=== PATIENT | female | born 1990 | race Caucasian/White ===

== ENCOUNTER 2024-07-24 15:00 | Outpatient (AMB) | payer BC, SELFPAY ==
--- NOTE | 2024-07-24 15:10 | MHC.PC.OV ---
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 Intake Note: establish care Is last menstrual period known: Yes Last menstrual period: 07/20/24 Post menopausal: No Patient : No Allergies sulfa drugs Allergy (Mild, Uncoded 07/24/24 15:12) Anaphylaxis Medication List - Last Reconciled 07/24/24 by Dixon Reaves MD No Known Home Meds Tobacco use date assessed: 07/24/24 Dental Screening Dental Screen Date: 07/24/24 Did you have a dental visit in the last 12 months?: No Did you have a dental problem in the last 6 months where you did not have access to dental care?: No Was dental information given to patient?: Patient has dentist HPI 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 ?? Prior PCP:?No PCP x years. Was seen at [facility] 3 yrs ago Acute issue(s):? GI issues Dx'd w/ Gastroparesis Dr Darleen Baugh Had tried Zofran & Omeprazole. Nausea and epigastric pain ?? PMHx:?Gastroparesis, Bipolar I disorder & Borderline Takes Sertraline 200mg daily SurgHx:?None FHx:?Mom: Cancer (?Breast CA) age 42. Substance Abuse. Dad: Substance Abuse, Bipolar I SocHx:? mNonsmoker. EtOH: 2 weekends a month up to 4 drinks. No drugs HPI Comments History of Present Illness Details Documentation assistance for Dixon Reaves MD, was provided by Ludwig Davis,? Soda Worker on 07/24/2024 at 3:30 PM EST. I, Dr. Reaves, have read, observed, and verified documentation. [facility] Medical History (Updated 07/24/24 @ 15:47 by Ludwig Davis) Depression Anxiety Gastroparesis Family History (Updated 07/24/24 @ 15:35 by Mary Barbosa) Mother Cancer Alcoholism Father Alcoholism Maternal Grandmother Breast cancer Paternal Grandmother Breast cancer Social History (Updated 07/24/24 @ 15:22 by Mary Barbosa) Housing: House Patient Tobacco Use Status: Never used Tobacco e-Cigarette/Vaping Use: Never Used Second Hand Smoke Exposure: No Use of substances other than those prescribed or required for medical reasons: Yes Substance Use Type: Marijuana Patient : No service: No Current occupational status: employed 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 1. Little interest or pleasure in doing things: not at all 2. Feeling down, depressed, or hopeless: several days 3. Trouble falling or staying asleep, or sleeping too much: more than half the days 4. Feeling tired or having little energy: several days 5. Poor appetite or overeating: nearly every day 6. Feeling bad about yourself - or that you are a failure or have let yourself or your family down: several days 7. Trouble concentrating on things, such as reading the newspaper or watching television: several days 8. Moving or speaking so slowly that other people could have noticed. Or the opposite - being so fidgety or restless that you have been moving around a lot more than usual: not at all 9. Thoughts that you would be better off or of hurting yourself in some way: not at all Total score: 9 Depression Screening Interpretation: Positive Depression Screening Done: Yes 74623 - PHQ-9 Billing: Yes Source: Developed by Drs. Herminio Gongora, Renee Carrillo, Omar Villarreal and colleagues, with an educational fiorella from [employer]. Thrive Questionnaire Date Thrive assessed: 07/24/24 I am a: Patient What is your living situation today?: I have a steady place to live Within the past 12 months, did the food you bought not last and you didn't have the money to get more?: Never true Within the past 12 months, did you worry whether your food would run out before you got money to buy more?: Never true Do you have trouble paying for medicines?: No Do you have trouble getting transportation to medical appointments?: No Do you have trouble paying your heating and electricity bill?: No Do you have trouble taking care of your child, family member or friend?: No Do you have trouble with day-to-day activities such as bathing, preparing meals, shopping, managing finances, etc.?: No Are you currently unemployed and looking for a job?: No Are you interested in more education?: No Please select the resources that you would like help with: None Currently or been in a relationship where the following occur: No concerns reported THRIVE Score: 0 AUDIT C Alcohol Use Questionnaire (AUDIT-C) 1. How often do you have a drink containing alcohol?: 2-4 times a month 2. How many drinks containing alcohol do you have on a typical day when you are drinking?: 3 or 4 3. How often do you have six or more drinks on one occasion?: Never Total Score: 3 Score Reviewed/Action Taken: Yes ARTURO-7 AMB Questionnaire ARTURO-7 Date ARTURO - 7 assessed: 07/24/24 Feeling nervous, anxious, or on edge: 1 = Several days Not being able to stop or control worryin = Several days Worrying too much about different things: 1 = Several days Trouble relaxin = Several days Being so restless that it is hard to sit still: 1 = Several days Becoming easily annoyed or irritable: 1 = Several days Feeling afraid as if something awful might happen: 0 = Not at all Total ARTURO-7 score (0-4 normal; 5-9 mild; 10-14 moderate; 15-21 severe): 6 Source: Developed by Drs. Herminio Gongora, Renee Carrillo, Omar Villarreal and colleagues, with an educational fiorella from [employer]. ARTURO-7 Assessment Billing ARTURO-7 Assessment Tool: ARTURO-7 Assessment 46017 Review of Systems Const Denies chills, Denies fatigue, Denies fever(s), Denies headache(s) and Denies weakness ENT Denies dizziness and Denies headache(s) Card Denies chest pain, Denies lightheadedness, Denies dyspnea and Denies other (Palpitations) Resp Denies cough, Denies dyspnea, Denies wheezing and Denies other ( shortness of breath) GI Details: Epigastric pain Reports nausea Musc Denies numbness and Denies tingling Neuro Denies dizziness, Denies headache(s), Denies numbness, Denies tingling, Denies paresthesias and Denies weakness Psych Reports anxiety and Reports depression Endo Denies fatigue Aller/Immun Denies wheezing Physical exam (Primary Care) Vital Signs: Last Vital Signs Temp 97.3 F 07/24/24 15:13 Pulse 72 07/24/24 15:13 Resp 16 07/24/24 15:13 BP 123/72 07/24/24 15:21 Pulse Ox 98 07/24/24 15:13 Oxygen Delivery Method Room Air 07/24/24 15:13 BMI result Body Mass Index 30.0 Tobacco/Smoking Status: Tobacco use Status Tobacco use date assessed 07/24/24 07/24/24 15:24 Patient Tobacco Use Status Never used Tobacco 07/24/24 15:24 e-Cigarette/Vaping Use Never Used 07/24/24 15:24 PHQ-9: PHQ-9 Score PHQ-9: Total score 9 07/24/24 15:19 Depression Screening Interpretation: Positive Thrive Assessment: Date of Thrive Assessment Date Thrive assessed 07/24/24 07/24/24 15:19 Currently or been in a relationship where the following occur: No concerns reported Const General: no acute distress and well developed Nutritional Appearance: well nourished Orientation/consciousness: patient oriented x3 [facility] Head: Yes normocephalic and Yes atraumatic Eyes General: appearance normal, both eyes and all related structures Pupils: Equal, round and reactive pupils present EOM: EOMs intact bilaterally Resp Effort & Inspection: normal respiratory effort Auscultation: clear to auscultation bilaterally Cardio Rate: regular rate Rhythm: regular rhythm Heart sounds: S1 normal heart sound present, S2 normal heart sound present, no gallops, no murmurs and no rubs Neuro General: patient oriented x3 and gait normal Cranial nerves: Yes Equal, round and reactive pupils present Psych Affect: normal affect Assessment and Plan Assessment & Plan (1) Depression with anxiety: Code(s): F41.8 - Other specified anxiety disorders Plan: History?of?bipolar?2?disorder?and?also?borderline?personality?disorder She?is?on?an?SSRI?still?prescribed?by?her?prior?provider?at?[facility]. She?has?been?working?on?getting?a?therapist?and?new?psych?med?provider. Will?benefit?from?referral?to?[facility]?outpatient?psychiatric?consult?for?interim?management. (2) Bipolar 2 disorder: Code(s): F31.81 - Bipolar II disorder Plan: As?above (3) Borderline personality disorder: Code(s): F60.3 - Borderline personality disorder Plan: As?above (4) Gastroparesis: Code(s): K31.84 - Gastroparesis Plan: History?of?gastroparesis,?diagnosed?by?Dr. Campbell She?has?tried?PPI?and?also?Zofran?without?significant?improvement. Referred?to?Gastroenterology (5) Laboratory exam ordered as part of routine general medical examination: Code(s): Z00.00 - Encounter for general adult medical examination without abnormal findings Plan: Check?lab Orders: Orders Lipid Panel Today Z00.00 - Encounter for general adult medical examination without abnormal findings Microalbumin, Random (w Creat) Today I10 - Essential (primary) hypertension UA and rflx microscopic Today Z00.00 - Encounter for general adult medical examination without abnormal findings CT NG by PCR Today Z11.3 - Encounter for screening for infections with a predominantly sexual mode of transmission Syphilis Screen Today Z11.3 - Encounter for screening for infections with a predominantly sexual mode of transmission Complete Blood Count Auto Diff Today F31.81 - Bipolar II disorder, Z00.00 - Encounter for general adult medical examination without abnormal findings Comprehensive [place]. Panel Fast Today Z00.00 - Encounter for general adult medical examination without abnormal findings TSH reflex Free T4 Today Z00.00 - Encounter for general adult medical examination without abnormal findings Hepatitis B,C Profile Today Z11.3 - Encounter for screening for infections with a predominantly sexual mode of transmission HIV Ab/Ag Today Z11.3 - Encounter for screening for infections with a predominantly sexual mode of transmission Referrals Psychiatry Outpatient Consultation Service F31.81 - Bipolar II disorder, F41.8 - Other specified anxiety disorders, F60.3 - Borderline personality disorder Medications: New sertraline 200 mg PO DAILY 90 days 90 caps 0RF Coding Level of Care Code New Pt Level 3 (19046) Diagnoses Depression with anxiety F41.8 Bipolar 2 disorder F31.81 Borderline personality disorder F60.3 Gastroparesis K31.84 Laboratory exam ordered as part of routine general medical examination Z00.00 Additional Codes ARTURO-7 Assessment Billing - ARTURO-7 Assessment Tool: ARTURO-7 Assessment 46135 ([id number])
[2024-07-24 15:13] VITALS: BP 131/73; PULSE 72; RESP 16; TEMP 36.3; O2SAT 98
[2024-07-24 15:21] VITALS: BP 123/72
== END 2024-07-24 16:47 | disposition home or self-care (01) ==
PROVIDERS: PCP Family Medicine; Visit Provider Family Medicine
DX: F41.8 Other specified anxiety disorders (principal); F31.81 Bipolar II disorder; F60.3 Borderline personality disorder; K31.84 Gastroparesis; Z00.00 Encounter for general adult medical examination without abnormal findings
CPT/HCPCS: 96127; 99203

== ENCOUNTER 2024-11-21 10:40 | Outpatient (REF) | payer BC, SELFPAY ==
[2024-11-21 14:15] LABS: MANUAL DIFF FLAG NO
[2024-11-21 14:15] LABS: Appearance Urine Cloudy; Color Urine Yellow; Glucose Urine UA Negative (Negative); Leukocyte Esterase Urine Moderate (2+) (Negative); Nitrite Urine Negative (Negative); PH 6.5 (5.0-9.0); Specific Gravity - Urine 1.015 (1.005-1.025); UMIC TRIGGER UA YES; Urine Blood Negative (Negative); Urine Ketones Negative (Negative); Urine Protein Negative (Neg-Trace)
[2024-11-21 14:20] LABS: Basophils Percent Auto 0.5 % (0-2); Eosinophils Absolute Auto 0.1 X10*3/uL (0.0-0.4); Eosinophils Percent Auto 1.2 % (0-4); Hematocrit 40.8 % (37.0-47.0); Hemoglobin 13.8 g/dl (12.0-16.0); Imm Gran Abs Auto 0.03 X10*3/uL (0.00-0.03); Imm Gran Pct Auto 0.5 % (0.0-0.4); Lymphocytes Absolute Auto 1.5 X10*3/uL (1.2-4.9); Lymphocytes Percent Auto 25.3 % (20-40); Mean Corpuscular HGB Conc 33.8 g/dl (31.0-35.0); Mean Corpuscular Hemoglobin 30.2 pg (27.0-33.0); Mean Corpuscular Volume 89.3 fL (80.0-98.0); Mean Platelet Volume 11.2 fL (9.4-12.3); Monocytes Absolute Auto 0.4 X10*3/uL (0.1-1.2); Monocytes Percent Auto 6.5 % (2-11); Neutrophils Absolute Auto 3.9 x10*3/uL (2.0-8.3); Platelet Count 293 X10*3/uL (160-400); Red Blood Count 4.57 X10*6/uL (4.20-5.50); Red Cell Distribution Width 12.6 % (11.0-16.0); White Blood Count 5.9 X10*3/uL (4.8-10.8)
[2024-11-21 14:32] LABS: Bacteria Urine 4+ (None Seen); Hyaline Casts Urine 0-2 /LPF (0-2); RBC Urine 0-2 /HPF (0-2); Squamous Epithelial Cell Urine >20 /HPF (0-2)
[2024-11-21 14:44] LABS: Alanine Aminotransferase 30 U/L (0-31); Albumin Level 4.3 g/dL (3.5-5.0); Alkaline Phosphatase 62 U/L (39-117); Anion Gap 13 (12-20); Aspartate Amino Transferase 28 U/L (5-31); Bilirubin Total 0.5 mg/dL (0.0-1.0); Blood Urea Nitrogen 8 mg/dL (9-16); Calcium 9.2 mg/dL (8.4-10.2); Carbon Dioxide 24 mmol/L (22-29); Chloride 107 mmol/L (96-108); Cholesterol 256 mg/dL (<200); Estimated Glomerular Filt Rate > 60; Glucose Fasting 97 mg/dL (60-99); HDL Cholesterol 57 mg/dL (>40); LDL Cholesterol Calculated 167 mg/dL (<100); Potassium 3.9 mmol/L (3.3-5.1); Sodium 140 mmol/L (135-145); Total Protein 7.4 g/dL (6.5-8.0); Triglycerides 161 mg/dL (<150)
[2024-11-21 14:49] LABS: Creatinine Urine 200.03 mg/dL; Microalbum/Creatinine Ratio Ur 4.4 ug/mg cr (<30)
[2024-11-21 14:51] LABS: Syphilis Screen Nonreactive (Nonreactive)
[2024-11-21 14:54] LABS: HBS Num1 481.49 mIU/mL (0-7.99); HBc Num1 0.15 S/CO (0.00-0.79); HBsAGNum1 0.35 S/CO (0.00-0.99); HIV AB/AG Nonreactive (Nonreactive); HIV Num 1 0.06 S/CO (0.00-0.99); Hepatitis B Core Antibody Nonreactive (Nonreactive); Hepatitis B Surface Antigen Negative (Negative); ~HepC Num1 0.09 S/CO (0.00-0.79); ~Hepatitis B Surface Antibody REACTIVE (Nonreactive); ~Hepatitis C Antibody Nonreactive (Nonreactive)
[2024-11-21 15:02] LABS: TSH reflex Free T4 1.29 uIU/mL (0.32-4.0)
== END 2024-11-21 10:41 | disposition home or self-care (01) ==
LOC: HO.WFDLDS 10:40
PROVIDERS: Visit Provider Family Medicine
DX: Z00.00 Encounter for general adult medical examination without abnormal findings (principal); I10 Essential (primary) hypertension; Z11.3 Encounter for screening for infections with a predominantly sexual mode of transmission; F31.81 Bipolar II disorder
CPT/HCPCS: 36415; 80053; 80061; 81001; 82043; 82570; 84443; 85025; 86704; 86706; 86780; 86803; 87340; 87389

== ENCOUNTER 2025-02-19 11:30 | Outpatient (AMB) | payer BC, SELFPAY ==
--- NOTE | 2025-02-19 11:36 | A.OFFPC_ITS ---
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 Labs drawn 11/21/24. Reviewed labs with pt. Triglycerides 161. TC 256. LDL 167. HDL 57. 4+ urine bacteria seen. 11-20 Urine WBC. Denies urinary symptoms. 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 1. Little interest or pleasure in doing things: several days 2. Feeling down, depressed, or hopeless: several days 3. Trouble falling or staying asleep, or sleeping too much: nearly every day 4. Feeling tired or having little energy: several days 5. Poor appetite or overeating: not at all 6. Feeling bad about yourself - or that you are a failure or have let yourself or your family down: not at all 7. Trouble concentrating on things, such as reading the newspaper or watching television: nearly every day 8. Moving or speaking so slowly that other people could have noticed. Or the opposite - being so fidgety or restless that you have been moving around a lot more than usual: several days 9. Thoughts that you would be better off or of hurting yourself in some way: not at all Total score: 10 Depression Screening Interpretation: Positive Depression Screening Done: Yes 36917 - PHQ-9 Billing: Yes Source: Developed by Drs. Herminio Gongora, Renee Carrillo, Omar Villarreal and colleagues, with an educational fiorella from [employer]. Thrive Questionnaire Date Thrive assessed: 02/19/25 I am a: Patient What is your living situation today?: I have a steady place to live Within the past 12 months, did the food you bought not last and you didn't have the money to get more?: Never true Within the past 12 months, did you worry whether your food would run out before you got money to buy more?: Never true Do you have trouble paying for medicines?: No Do you have trouble getting transportation to medical appointments?: No Do you have trouble paying your heating and electricity bill?: No Do you have trouble taking care of your child, family member or friend?: No Do you have trouble with day-to-day activities such as bathing, preparing meals, shopping, managing finances, etc.?: No Are you currently unemployed and looking for a job?: No Are you interested in more education?: No Please select the resources that you would like help with: None Currently or been in a relationship where the following occur: No concerns reported THRIVE Score: 0 AUDIT C Alcohol Use Questionnaire (AUDIT-C) 1. How often do you have a drink containing alcohol?: 2-4 times a month 2. How many drinks containing alcohol do you have on a typical day when you are drinking?: 1 or 2 3. How often do you have six or more drinks on one occasion?: Never Total Score: 2 Score Reviewed/Action Taken: Yes ARTURO-7 AMB Questionnaire ARTURO-7 Date ARTURO - 7 assessed: 02/19/25 Feeling nervous, anxious, or on edge: 1 = Several days Not being able to stop or control worryin = More than half the days Worrying too much about different things: 2 = More than half the days Trouble relaxin = More than half the days Being so restless that it is hard to sit still: 3 = Nearly every day Becoming easily annoyed or irritable: 1 = Several days Feeling afraid as if something awful might happen: 0 = Not at all Total ARTURO-7 score (0-4 normal; 5-9 mild; 10-14 moderate; 15-21 severe): 11 Source: Developed by Drs. Herminio Gongora, Renee Carrillo, Omar Villarreal and colleagues, with an educational fiorella from [employer]. ARTURO-7 Assessment Billing ARTURO-7 Assessment Tool: ARTURO-7 Assessment 16172 Review of Systems Const Denies chills, Denies fatigue, Denies fever(s), Denies headache(s) and Denies weakness ENT Denies dizziness and Denies headache(s) Card Denies dyspnea Resp Denies cough, Denies dyspnea, Denies wheezing and Denies other (shortness of breath) Musc Denies numbness and Denies tingling Neuro Denies dizziness, Denies headache(s), Denies numbness, Denies tingling and Denies weakness Psych Denies anxiety and Denies depression Endo Denies fatigue Aller/Immun Denies wheezing Physical exam (Primary Care) Vital Signs: Last Vital Signs Temp 98.3 F 02/19/25 11:38 Pulse 77 02/19/25 11:38 Resp 14 02/19/25 11:38 BP 116/70 02/19/25 11:38 Pulse Ox 98 02/19/25 11:38 Oxygen Delivery Method Room Air 02/19/25 11:38 BMI result Body Mass Index 29.8 Tobacco/Smoking Status: Tobacco use Status Tobacco use date assessed 07/24/24 02/19/25 11:41 Patient Tobacco Use Status Never used Tobacco 02/19/25 11:41 e-Cigarette/Vaping Use Never Used 02/19/25 11:41 PHQ-9: PHQ-9 Score PHQ-9: Total score 10 02/19/25 11:45 Depression Screening Interpretation: Positive Thrive Assessment: Date of Thrive Assessment Date Thrive assessed 02/19/25 02/19/25 11:41 Currently or been in a relationship where the following occur: No concerns reported Const General: well developed; No acute distress Nutritional Appearance: well nourished Orientation/consciousness: patient oriented x3 [facility] Head: Yes normocephalic and Yes atraumatic Eyes General: appearance normal, both eyes and all related structures Pupils: Equal, round and reactive pupils present EOM: EOMs intact bilaterally Resp Effort & Inspection: normal respiratory effort Neuro General: patient oriented x3 and gait normal Cranial nerves: Yes Equal, round and reactive pupils present Psych Affect: normal affect Coding Level of Care Code Est Pt Level 4 (59479) Diagnoses Hyperlipidemia E78.5 Bacteria in urine R82.71 Difficulty concentrating R41.840 Screening for STD (sexually transmitted disease) Z11.3 Additional Codes ARTURO-7 Assessment Billing - ARTURO-7 Assessment Tool: ARTURO-7 Assessment 70146 ([id number]) PHQ-9 - 02097 - PHQ-9 Billing: Yes ([id number]) Assessment & Plan Assessment & Plan (1) Hyperlipidemia: Code(s): E78.5 - Hyperlipidemia, unspecified Category: Medical Plan: LDL?cholesterol?and?TC?are?too?high Encouraged?a?diet?lower?in?saturated?fats?and?cholesterol Will?recheck?in?about?3?months. We?did?discuss?briefly?that?we?may?need?to?consider?medication (2) Bacteria in urine: Code(s): R82.71 - Bacteriuria Category: Medical Plan: No?symptoms Hydrate?well Void?regularly (3) Difficulty concentrating: Code(s): R41.840 - Attention and concentration deficit Category: Medical Plan: Patient?says?her?therapist?has?diagnosed?her?with?ADHD She?will?have?therapist?note?forwarded?to?me?establishing?diagnosis.??We?discuss ?medications/treatments?after?that (4) Screening for STD (sexually transmitted disease): Code(s): Z11.3 - Encounter for screening for infections with a predominantly sexual mode of transmission Category: Medical Plan: Negative Orders: Orders Lipid Panel Today E78.5 - Hyperlipidemia, unspecified, Z00.00 - Encounter for general adult medical examination without abnormal findings Comprehensive Rule. Panel Fast Today E78.5 - Hyperlipidemia, unspecified, Z00.00 - Encounter for general adult medical examination without abnormal findings
[2025-02-19 11:38] VITALS: BP 116/70; PULSE 77; RESP 14; TEMP 36.8; O2SAT 98; BMI 29.8
== END 2025-02-19 11:53 | disposition home or self-care (01) ==
LOC: HO.HMCFM 11:31
PROVIDERS: PCP Family Medicine; Visit Provider Family Medicine
DX: E78.5 Hyperlipidemia, unspecified (principal); R82.71 Bacteriuria; R41.840 Attention and concentration deficit; Z11.3 Encounter for screening for infections with a predominantly sexual mode of transmission

== ENCOUNTER → 2025-02-19 11:30 | Outpatient (BNVA) | payer BC, SELFPAY | PROVIDERS: PCP Family Medicine; Visit Provider Family Medicine | DX: E78.5 Hyperlipidemia, unspecified (principal); R82.71 Bacteriuria; R41.840 Attention and concentration deficit | CPT/HCPCS: 96127 ==

== ENCOUNTER 2025-05-06 11:07 | Outpatient (AMB) | payer BC, SELFPAY ==
--- NOTE | 2025-05-06 11:17 | A.OFFPC_ITS ---
Vital Signs 05/06/25 11:19 Height 5 ft 2 in Weight 159 lb 4 oz BMI 29.1 BP 110/84 Blood Pressure Location Rt brachial Position Sitting Respiration 14 Pulse 82 Pulse Source Pulse Oximeter Pulse Oximetry (%) 99 Oxygen Delivery Method Room Air Oxygen Flow Rate 97.9 Intake Visit Reasons: Chest pain Intake Note: Was sick two weeks ago. For the past 3 days has been having cough, chest pain, sob. 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 She states that about 2 weeks ago she was really sick with flu-like symptoms including congestion, fever, chills, body aches. She says that she was down in out in bed for about a week. She does have asthma and it does tend to flare-up with illnesses. She says that she has noticed this intermittent wheezing and shortness on breath. She felt fine for a few days and then for the last few days has had a cough that is almost constant and productive. She is also wheezing and short of breath with it. She says it feels like a tightness in her chest. She bought an [id number] inhaler and that seem to make a difference. She also tried DayQuil today which has not helped the cough signif icantly. No nausea, vomiting or dizziness. [facility] Medical History (Updated 05/06/25 @ 15:08 by Hanny Wilkerson PA-C) Depression Anxiety Gastroparesis Family History Mother Cancer Alcoholism Father Alcoholism Maternal Grandmother Breast cancer Paternal Grandmother Breast cancer Social History (Updated 05/06/25 @ 11:28 by Cayla Wilson CMA) Housing: House Alcohol intake: current Patient Tobacco Use Status: Never used Tobacco e-Cigarette/Vaping Use: Never Used Second Hand Smoke Exposure: No Use of substances other than those prescribed or required for medical reasons: Yes Substance Use Type: Marijuana service: No Current occupational status: employed 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 Current occupational exposures/hazards: Yes Cognitive needs: No Hearing needs: No Vision needs: Yes Questionnaire Thrive Questionnaire Date Thrive assessed: 02/12/25 I am a: Patient What is your living situation today?: I have a steady place to live Within the past 12 months, did the food you bought not last and you didn't have the money to get more?: Never true Within the past 12 months, did you worry whether your food would run out before you got money to buy more?: Never true Do you have trouble paying for medicines?: No Do you have trouble getting transportation to medical appointments?: No Do you have trouble paying your heating and electricity bill?: No Do you have trouble taking care of your child, family member or friend?: No Do you have trouble with day-to-day activities such as bathing, preparing meals, shopping, managing finances, etc.?: No Are you currently unemployed and looking for a job?: No Are you interested in more education?: No Please select the resources that you would like help with: None Currently or been in a relationship where the following occur: No concerns reported THRIVE Score: 0 ARTURO-7 AMB Questionnaire ARTURO-7 Date ARTURO - 7 assessed: 02/19/25 Source: Developed by Drs. Herminio Gongora, Renee Carrillo, Omar Villarreal and colleagues, with an educational fiorella from [employer]. Physical exam (Primary Care) Vital Signs: Last Vital Signs Pulse 82 05/06/25 11:19 Resp 14 05/06/25 11:19 BP 110/84 05/06/25 11:19 Pulse Ox 99 05/06/25 11:19 Oxygen Delivery Method Room Air 05/06/25 11:19 Oxygen Flow Rate 97.9 05/06/25 11:19 BMI result Body Mass Index 29.1 Tobacco/Smoking Status: Tobacco use Status Tobacco use date assessed 07/24/24 05/06/25 11:23 Patient Tobacco Use Status Never used Tobacco 05/06/25 11:28 e-Cigarette/Vaping Use Never Used 05/06/25 11:28 Thrive Assessment: Date of Thrive Assessment Date Thrive assessed 02/12/25 05/06/25 11:23 Currently or been in a relationship where the following occur: No concerns reported Const Orientation/consciousness: patient oriented x3 HENMT Ears: hearing grossly normal bilaterally and TM's normal bilaterally General nose exam: Normal nares present and No nasal discharge present Face and sinus: Yes sinuses nontender Mouth: Normal oral and palatal mucosa present Neck Thyroid: Thyroid normal Lymphatic: no lymphadenopathy noted Resp Other: Able to speak in full sentences however, coughing throughout. Scattered wheezing noted throughout the posterior lung wilson. Crackles noted at the left lower lung. Cardio Rate: regular rate Rhythm: regular rhythm Heart sounds: S1 normal heart sound present and S2 normal heart sound present GI Inspection: Yes normal to inspection Palpation (GI): Soft to palpation and Other GI palpation findings present (nontender, no cva tenderness) Auscultation: normoactive bowel sounds Rectal Exam - Female: deferred Skin General skin exam: no rashes or lesions noted Neuro General: patient oriented x3, gait normal and no focal motor deficits Office Procedures EKG Details: EKG today in the office is normal sinus rhythm at a rate of 66 beats per minute with nonspecific STT wave abnormalities. No prior study to compare. EKG interpreted by myself and Dr. aPrrish. [id number], Complete Coding Level of Care Code Est Pt Level 4 (37848) Complex EM visit Add On G2211 Diagnoses Lung infection J18.9 CPT Codes EKG - CPT: 48838-Rrwsvdqlniqfcfeyg, Complete ([id number]) Assessment & Plan Assessment & Plan (1) Lung infection: Code(s): J18.9 - Pneumonia, unspecified organism Category: Medical Plan: Chest x-ray ordered Physical exam suspicious for pneumonia. I will start her on antibiotics. Discussed risks and benefits and adverse effects of the medication. Advised to continue with the inhaler as needed We will treat with a prednisone taper for the asthma exacerbation. Advised that this may cause GI upset, insomnia, agitation, moodiness, increased hunger etc.. Follow up if no improvement or if anything worsens or changes. Patient understands and agrees with the plan. Orders: Orders XR chest 2V Today J18.9 - Pneumonia, unspecified organism Medications: New prednisone take 3 tab po x 3 days, take 2 tab po x 3 days, 1 tab po x 3 days 18 tabs 0RF amoxicillin-pot clavulanate 875-125 mg 1 tab PO Q12H 20 tabs 0RF azithromycin For 250 mg dose pack: take 500 mg today (day 1), then 250 mg for 4 days (days 2-5) PO 6 tabs 0RF
[2025-05-06 11:19] VITALS: BP 110/84; PULSE 82; RESP 14; O2SAT 99; BMI 29.1
--- OUTSIDE RECORDS SUMMARY | 2025-05-06 12:46 | XMS_ITS | Data Portability ---
Author Organization [facility] , [address] Address [address] [place] [address] Assessment No assessment recorded. Plan of Treatment Reminders Order Date Submit Date Provider Last Modified By Organization Details Last Modified Time Details Appointments None record ed. Lab None record ed. Referral None record ed. Procedures None record ed. Surgeries None record ed. Imaging None record ed. Medication Orders None record ed. Patient TargetsNo targets recorded. Patient InstructionsNo instructions recorded. Reason for Referral None Reported. Procedures Surgical History Date Name Laterality Status Provider Name and Address Organization Details Recorded Time OC-UDS Send Out Template NON DOT completed REGULO ARCHIBALD BANNER [employer] [facility] 08/10/2023 15:50:00 Imaging Results None recorded. Procedure Notes None recorded. Medical Equipment None Reported. Medications Name Sig Start Date Stop Date Status Note LastModified by Organization Details LastModified Time sertraline 100 mg tablet TAKE 2 TABLETS BY MOUTH DAILY active Not Available Not Available No t Available ciprofloxacin 500 mg tablet TAKE 1 TABLET BY MOUTH TWICE DAILY FOR 4 DAYS active Not Available Not Available No t Available Vitals None Recorded Social History None recorded. Functional Status None recorded. Mental Status None recorded. Family History Nothing Reported. Medical History No medical history recorded. Gynecological HistoryNo gynecological history recorded. Obstetrics History GPAL:G 0 P 0 0 0 0 Past Encounters Encounter ID Performer Location Encounter Start Date Encounter Closed Date Diagnosis/Indication Diagnosis SNOMED-CT Code Diagnosis ICD10 Code Diagnosis [place] [id number] [place] [address] [facility] [address] [place] [address] 08/10/2023 14:49:07 08/10/2023 15:50:57 History and physical examination, occupation 554403420 Z02.1 Health Concerns Section Related Observation LastModified by Organization Detai ls LastModified Time None Recorded Concern Status LastModified by Organization Details LastModified Time None Recorded Advance Directives Directive None Recorded Payers Insurance Date Sequence Insurance Name Policy Number Policy Nam Covered Member ID Nam Member ID Guarantor Name 08/10/2023 OC-ESCREEN [employer] BAIRON Bansal [facility] Episode No OBEpisode recorded.
== END 2025-05-06 14:48 | disposition home or self-care (01) ==
LOC: HO.HMCFM 11:08
PROVIDERS: PCP Family Medicine; Visit Provider Physician Assistant
DX: J18.9 Pneumonia, unspecified organism (principal)

== ENCOUNTER → 2025-05-06 11:07 | Outpatient (BNVA) | payer BC, SELFPAY | PROVIDERS: PCP Family Medicine; Visit Provider Physician Assistant | DX: J18.9 Pneumonia, unspecified organism (principal); R07.9 Chest pain, unspecified; J45.909 Unspecified asthma, uncomplicated | CPT/HCPCS: 93005 ==

== ENCOUNTER 2025-09-24 08:57 | Outpatient (REF) | payer BC, SELFPAY ==
--- OUTSIDE RECORDS SUMMARY | 2025-09-24 09:59 | XMS_ITS | Clinical Summary ---
Author Organization [facility] Address [address] [place] [phone] Phone Care Team Providers Care Mussel Opener Name Role Phone Pcp, Unknown Primary Care Provider Unavailabl e Allergies Active Allergy Reactions Criticality Noted Date Comments Sulfa (Sulfonamide Antibiotics) Unknown 04/2017 Medications sertraline (ZOLOFT) 100 MG tablet Take 200 mg by mouth daily. Active Family History Medical History Relation Comments Lung cancer Maternal Grandfather Breast cancer Mother Ovarian cancer Mother Breast cancer Paternal Grandmother Relation Status Comments Maternal Grandfather Mother Paternal Grandmother Social History Tobacco Use Types Packs/Day Years Used Date Smoking Tobacco: Never Smokeless Tobacco: Never Tobacco Cessation:Counseling Given: Not Answered Alcohol Use Standard Drinks/Week Comments Yes 3 (1 standard drink = 0.6 oz pur e alcohol) Education Answer Date Recorded Are you interested in more education? Not on burt e 06/18/2024 Are you concerned about learning? Not on file 06/18/2024 No 06/18/2024 No 06/18/2024 Digital Access Answer Date Recorded No 06/18/2024 No 06/18/2024 Reliable internet access at home? Not on file 06/18/2024 Device with a working camera? Not on file Comments No Sex and Gender Information Value Date Recorded Sex Assigned at Not on file Legal Sex Female 9:02 PM EDT Gender Identity Not on file Sexual Orientation Not on file Last Filed Vital Signs Vital Sign Reading Time Taken Comments Blood Pressure 116/68 06/20/2024 10:27 AM EDT Pulse - - Temperature - - Respiratory Rate - - Oxygen Saturation - - Inhaled Oxygen Concentration - - Weight 74.8 kg (165 lb) 06/20/2024 10:27 AM EDT Height 157.5 cm (5' 2 ) 06/20/2024 10:27 AM EDT Body Mass Index 30.18 06/20/2024 10:27 AM EDT Plan of Treatment Health Maintenance Due Date Last Done Comments DEPRESSION SCREENING 2003 HEPATITIS C SCREENING 2009 HIV ONE-TIME SCREENING (18-6 5 YEARS) 2009 INFLUENZA VACCINE (#1) 2025 COVID-19 VACCINE ( - 2024-2 6 season) 2025 PAP SMEAR 06/20/2027 06/20/2024 Adult Td,Tdap Booster 05/22/2029 05/22/2019 SMOKING STATUS SCREENING (On ce After 26 Yrs) Completed 06/20/2024 HEPATITIS A VACCINES Aged Out No long er eligible based on patient's age to complete this topic HIB VACCINES Aged Out No longer eligi ble based on patient's age to complete this topic MENINGOCOCCAL VACCINES (ACWY) Aged Out No longer eligible based on patient's age to complete this topic MENINGOCOCCAL VACCINES (B) Aged Out N o longer eligible based on patient's age to complete this topic PNEUMOCOCCAL VACCINES (0-49 years) Aged Out No longer eligible based on patient's age to complete this topic Medical Devices Not on file Procedures Procedure Name Priority Date/Time Associated Diagnosis Comments PAP TEST Routine 06/20/2024 12:00 AM EDT from Last 3 Months or Most Recently Relevant to Health Maintenance Results * Pap Test (06/20/2024 12:00 AM EDT) Report [address] [address] Toby Maker: Tamara Hall MD PLASTIC SEWER Cytology Report FINAL DIAGNOSIS A. PAP SMEAR (THIN PREP) CE: SPECIMEN ADEQUACY: Satisfactory for evaluation; transformation zone present. INTERPRETATION: NEGATIVE FOR INTRAEPITHELIAL LESION OR MALIGNANCY. Coccobacilli consistent with shift in butch This specimen was analyzed by the automated ThinPrep Imaging System (Stream5.) and the selected wilson were reviewed by a web content producer. Electronically Signed Out By: HANNA Lewis(ASCP) The Pap test is a screening test primarily for squamous cancers and precursors and has associated false-negative and false-positive results. New technologies such as liquid-based preparations may decrease but will not eliminate all false-negative results. Regular sampling and follow-up of unexplained clinical signs and symptoms are recommended to minimize false negative results. PROCEDURES/ADDENDA HPV Testing (Requested) Ordered Date: 06/23/2024 A. PAP SMEAR (THIN PREP) CE: Human Papilloma Virus Test NEGATIVE for high-risk Human Papilloma Virus types 16, 18, 45 and the Other high risk probe set (Includes 31, 33, 35, 39, 51, 52, 56, 58, 59, 66, 68) Note: Testing performed by [employer] HR-HPV analysis. Clinical correlation is advised. This HPV test was performed at [facility], [address] [place] [address]. This test has been FDA approved for both SurePath and ThinPrep cervical cytology specimens. The accuracy and precision of this test for all other specimen sources has been verified in the Cytopathology Laboratory of the [facility] and has not been cleared or approved by the U.S. Food and Drug Administration. Clinical correlation is advised. CLINICAL HISTORY Date of Last Menstrual Period: 06-15-2024 Other Clinical Conditions: Screening Pap SPECIMEN SOURCE A: PAP SMEAR (THIN PREP) CE Patient Name: SHABNAM RENNER : 1990 (Age: 34) Sex: F Institution: [facility] Location: [facility] Date of Collection: 06/20/2024 Date of Reported: 06/27/2024 10:39 Results to: Nahomy Gill MD [facility] Final Diagnosis A. PAP SMEAR (THIN PREP) CE: SPECIMEN ADEQUACY: Satisfactory for evaluation; transformation zone present. INTERPRETATION: NEGATIVE FOR INTRAEPITHELIAL LESION OR MALIGNANCY. Coccobacilli consistent with shift in butch This specimen was analyzed by the automated ThinPrep Imaging System (Stream5.) and the selected wilson were reviewed by a web content producer. [facility] Results\Inter pretation A. PAP SMEAR (THIN PREP) CE: Human Papilloma Virus TestNEGATIVE for high-risk Human Papilloma Virus types 16, 18, 45 and the Other high risk probe set (Includes 31, 33, 35, 39, 51, 52, 56, 58, 59, 66, 68)Note: Testing performed by [employer] Onclarity HR-HPV analysis. Clinical correlation is advised. This HPV test was performed at [facility], [address] [place] [address]. This test has been FDA approved for both SurePath and ThinPrep cervical cytology specimens. The accuracy and precision of this test for all other specimen sources has been verified in the Cytopathology Laboratory of the [facility] and has not been cleared or approved by the U.S. Food and Drug Administration. Clinical correlation is advised. [facility] Conversion Type (Conversion Source) 06/20/2024 06/23/2024 9:16 AM EDT us Nahomy Gill MD CYTOLOGY ORDERABLES Edited Res ult - Final [facility] [address] [place] [address] from Last 3 Months or Most Recently Relevant to Health Maintenance Insurance [address] [place] [address] [place] [address] [place] [address] [address] [place] [address] [place] [address] [place] [address] [address] [place] [address] [place] [address] OUT OF [facility] PPO [facility] OUT OF STATE PPO BLUE [place] OUT OF STATE PPO Care Teams Mussel Opener Relationship Specialty Start Date End Date Pcp, Unknown PCP - General 06/18/24 Additional Source Comments The information contained in this document represents components of the legal health record. It is not the complete legal health record.[facility]
--- OUTSIDE RECORDS SUMMARY | 2025-09-24 09:59 | XMS_ITS ---
Author Name [facility] Organization Unknown Care Team Organization Name Specialty Phone Email Start Date End [facility] Termed, PROVIDER Primary Care 10/03/202206/26
--- OUTSIDE RECORDS SUMMARY | 2025-09-24 09:59 | XMS_ITS | Data Portability ---
Author Organization [facility], [address] Address [address] [place] [address] Assessment No assessment recorded. Plan of Treatment [...] Send Out Template NON DOT completed REG[facility] 08/10/2023 15:50:00 Imaging Results None recorded. [...] Diagnosis SNOMED-CT Code Diagnosis ICD10 Code Diagnosis IMO Codes Diagnosis Note [id number] [place] [address] [facility] [address] [place] [address] 08/10/2023 14:49:07 08/10/2023 15:50:57 History and physical examination, occupation [id number] Z02.1 Health Concerns Section Related Observation LastModified [...]
[2025-09-24 12:02] LABS: Alanine Aminotransferase 21 U/L (0-31); Albumin Level 4.5 g/dL (3.5-5.0); Alkaline Phosphatase 53 U/L (39-117); Anion Gap 11 (12-20); Aspartate Amino Transferase 22 U/L (5-31); Blood Urea Nitrogen 8 mg/dL (9-16); Calcium 9.4 mg/dL (8.4-10.2); Carbon Dioxide 28 mmol/L (22-29); Chloride 104 mmol/L (96-108); Cholesterol 250 mg/dL (<200); Estimated Glomerular Filt Rate > 60; HDL Cholesterol 63 mg/dL (>40); Potassium 4.3 mmol/L (3.3-5.1); Sodium 139 mmol/L (135-145); Total Protein 6.9 g/dL (6.5-8.0); Triglycerides 99 mg/dL (<150)
== END 2025-09-24 08:58 | disposition home or self-care (01) ==
LOC: HO.WFDLDS 08:57
PROVIDERS: Visit Provider Family Medicine
DX: Z00.00 Encounter for general adult medical examination without abnormal findings (principal); E78.5 Hyperlipidemia, unspecified
CPT/HCPCS: 36415; 80053; 80061